=== PATIENT | male | born 1945 | race Caucasian/White ===

== ENCOUNTER 2024-05-04 06:27 | Observation (INO) | payer MEDICARE, OTHER ==
[2024-04-30 13:00] LABS: BASOPHILS # (AUTO) 0.02 K/uL (0.00-0.20); BASOPHILS % (AUTO) 0.2 % (0.0-5.0); EOSINOPHILS # (AUTO) 0.35 K/uL (0.00-0.70); EOSINOPHILS % (AUTO) 3.5 % (0.0-8.0); HEMATOCRIT 47.8 % (42-54); IMMATURE GRANULOCYTE ABSOLUTE 0.03 K/uL (0-1); LYMPHOCYTES # (AUTO) 2.7 K/uL (1.0-4.8); MEAN CORPUSCULAR HEMOGLOBIN 31.3 pg (27.0-33.0); MEAN CORPUSCULAR HGB CONC 33.1 g/dL (32.0-36.0); MEAN CORPUSCULAR VOLUME 94.7 fL (79-99); MONOCYTES # (AUTO) 0.8 K/uL (0.1-1.0); MONOCYTES % (AUTO) 7.8 % (3.0-13.0); NEUTROPHILS # (AUTO) 6.1 K/uL (1.8-7.7); NEUTROPHILS % (AUTO) 61.2 % (40.0-77.0); PLATELET COUNT (AUTO) 270 K/uL (130-400); RED BLOOD CELL COUNT(AUTO) 5.05 MIL/uL (4.50-6.20); RED CELL DISTRIBUTION WIDTH 13.2 % (11.0-15.5); WHITE BLOOD COUNT (AUTO) 9.9 K/uL (4.8-10.8)
[2024-04-30 13:07] LABS: APPEARANCE,URINE CLEAR (CLEAR); BILIRUBIN,URINE NEGATIVE (NEGATIVE); COLOR,URINE LIGHT-YELLOW (YELLOW); GLUCOSE, URINE (UA) NEGATIVE (NEGATIVE); KETONES,URINE NEGATIVE (NEGATIVE); LEUKOCYTE ESTERASE ,URINE NEGATIVE Leu/uL (NEGATIVE); NITRATE,URINE NEGATIVE (NEGATIVE); OCCULT BLOOD,URINE NEGATIVE (NEGATIVE); PROTEIN,URINE NEGATIVE (NEGATIVE); UROBILINOGEN,URINE 0.2 mg/dL (0.2-1.0)
[2024-04-30 13:35] LABS: ADD UA MICROSCOPIC NO
[2024-04-30 13:48] VITALS: BP 181/91; PULSE 86; RESP 18; TEMP 97.5
--- NOTE | 2024-04-30 13:48 | EKG ---
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
[~2024-05-04] VITALS: Ht 193 cm; Wt 151.0 kg
[2024-05-04] VITALS (28 sets, daily range): BP systolic 121–169; BP diastolic 65–94; PULSE 59–104; RESP 12–20; TEMP 96.8–98; O2SAT 97
[~2024-05-04 06:27] MED LIST: LOSA100T59 PO
[2024-05-04] MEDS: ceFAZolin SODIUM 2 GM VIAL ONE (07:07)
[2024-05-04] MEDS: LACTATED RINGERS 1000ML 1,000 ML IV ONE (07:07)
[2024-05-04] MEDS: ceFAZolin SODIUM 1 GM VIAL ONE (07:07)
[2024-05-04] MEDS ORDERED: proPOFol 10 MG/ML 20ML VIAL IV ONE ×2 (07:14→08:40)
[2024-05-04] MEDS ORDERED: GLYCOPYRROLATE 0.2 MG/ML 5 ML VIAL ONE (07:14)
[2024-05-04] MEDS ORDERED: ondanSETRON 4MG INJ ONE ×2 (07:14→09:29)
[2024-05-04] MEDS ORDERED: NEOSTIGMINE METHYLSULFATE 1MG/ML IV ONE (07:14)
[2024-05-04] MEDS ORDERED: dexaMETHasone SOD PHOSPHATE 10MG/ML 1ML VIAL ONE (07:14)
[2024-05-04] MEDS ORDERED: SUCCINYLCHOLINE CHLORIDE 20 MG/ML 10 ML VIAL ONE (07:14)
[2024-05-04] MEDS ORDERED: LIDOCAINE PF 100MG/5ML (2%) SYRINGE 5ML ONE (07:14)
[2024-05-04] MEDS ORDERED: rocuRONium bROMide 10MG/1ML 5ML VL ONE ×2 (07:15→09:14)
[2024-05-04] MEDS ORDERED: MIDAZOLAM HCL 1 MG/ML 2ML VIAL ONE (07:15)
[2024-05-04] MEDS ORDERED: FENTanyl CITRate PF 50 MCG/1 ML 2ML VIAL ONE ×3 (07:15→10:44)
[2024-05-04] MEDS ORDERED: phenylEPHRINE HCL 10 MG/ML 1ML VIAL IV ONE (07:21)
[2024-05-04] MEDS ORDERED: TRANEXAMIC ACID 1000MG/10ML ONE (07:54)
[2024-05-04] MEDS ORDERED: ROPivacaine 0.5% 5MG/ML 30ML ONE (07:55)
[2024-05-04] MEDS ORDERED: ketOROlac 30MG VIAL (30MG/ML) ONE (07:55)
[2024-05-04] MEDS ORDERED: PoTASSium chloRIDE 20MEQ/100ML 100 ML IV PRN (08:00)
[2024-05-04] MEDS ORDERED: traMADol HCL 50 MG TABLET PO PRN (08:00)
[2024-05-04] MEDS ORDERED: PoTASSium chl 10% ELIXIR 20MEQ 20 MEQ/15 ML UDCUP PO PRN (08:00)
[2024-05-04] MEDS ORDERED: ondanSETRON 4MG INJ IVP PRN (08:00)
[2024-05-04] MEDS ORDERED: CALCIUM CARB 500MG PO PRN (08:00)
[2024-05-04] MEDS ORDERED: PoTASSium chloRIDE 20MEQ ER 20 MEQ ERTAB PO PRN (08:00)
[2024-05-04] MEDS ORDERED: FERROUS FUMARATE 324 MG TABLET PO PRN (08:00)
[2024-05-04] MEDS ORDERED: PROMETHAZINE HCL 25 MG TABLET PO PRN (08:00)
[2024-05-04] MEDS: ROPivacaine 0.5% 5MG/ML 30ML IJ ONE (08:02)
--- NOTE | 2024-05-04 11:06 | OP ---
Operative Note: DATE OF PROCEDURE: 05/04/24 PREOPERATIVE DIAGNOSIS: Left knee osteoarthritis. POSTOPERATIVE DIAGNOSIS: Left knee osteoarthritis. PROCEDURE PERFORMED: Left knee total knee arthroplasty. SURGEON: Talita Morataya MD HAND [employer] MAKER: Emma Steinberg. ANESTHESIA: General with adductor canal block. ANESTHESIA: ANNY Claudio. ESTIMATED BLOOD LOSS: 50cc. COMPLICATIONS: None. DRAINS: None. SPECIMENS REMOVED: resected bone. Not sent to pathology. IMPLANTS: [employer] II BCS size 8 Oxinium femur, size 7 tibial base plate, 35 mm patella, 11 mm polyethylene STATEMENT OF MEDICAL NECESSITY: The patient is a 78-year-old male who suffers from left knee osteoarthritis failing conservative management. After discussion of the risks, benefits, and alternatives with the patient, they voluntarily agreed to undergo the aforementioned procedure. DESCRIPTION OF PROCEDURE: Patient was properly identified in the preoperative holding area. Surgical site marking was verified and surgery consent reviewed. The patient was then taken to the operating room and placed in supine position on the OR table. After induction of general anesthesia, preoperative antibiotics were given, all bony prominences were well-padded, and a well padded tourniquet was applied but not inflated at this time. The left lower extremity was then prepped and draped in usual sterile fashion. Surgical time out was done verifying correct surgery, side, site, and location to be performed. We then began the procedure by exsanguinating the limb using an Esmarch and inflating the tourniquet to 350 mmHg. At this point, we made an anterior midline incision using a 10 blade, coming down sharply the level of the fascia. Skin flaps were elevated medially and laterally. We then obtained a clean 10 blade and performed a standard medial parapatellar arthrotomy. We excised the infrapatellar fat pad. We performed our soft tissue releases off of the tibia. We transected the ACL and removed the anterior portion of the medial & lateral meniscus. We then brought the knee into hyperflexion with the patella everted. We used our entry reamer to enter the femoral canal. We then placed our intramedullary cutting guide for our distal femoral cutting block. We then performed our distal femoral osteotomy ensuring appropriate rotation and removed the bony wafer. We then removed these pins and block and then used jig 2 to size the distal femur with the after mentioned size found. We then placed our 5-in-1 cutting block in 3 degrees of external rotation and took our 5 cuts ensuring to protect the patellar tendon and the collateral ligaments. We then removed the cutting block and our bony fragments using a curved osteotome. We then placed our PCL retractor subluxating the tibia anteriorly. Using an extra medullary tibial cutting guide, we hung the block for our proximal tibial cut taking 2 mm off the more diseased portion. Prior to pinning this block in place, we ensured appropriate varus/valgus alignment and posterior slope similar to the coquille slope of the patient's knee. We then performed our proximal tibial osteotomy and removed the bony wafer using Bovie electrocautery to release any remaining soft tissue attachments. We then used our tibial sizing paddle and checked once more for varus & valgus alignment and found this to be appropriate. At this point, we pinned our tibial paddle in place. We then removed the PCL retractor and subluxated the tibia posteriorly while we placed our femoral trial component. We then finished preparing the notch with the reamer and box chisel. The notch portion of the trial femoral component was then placed. A posterior stabilized polyethylene, size 9 trial was placed. This was immediately increased up to a size 10 due to laxity with varus and valgus stressing. The knee was then taken through range of motion and found to have stable full range of motion. We then placed a bump under the ankle and everted the patella to perform our freehand cut of the undersurface the patella. We then sized our patella and reamed to the lug holes for this. We placed our trial patellar component and begin to take the knee through range of motion. The patella had some lateral tracking, and we performed a lateral release. The patella had a mild lateral tracking so which improved with holding the arthrotomy reduced with a towel clip. At this point we began removing our trial components and punched the tibial keel prior to removing our tibial trial component. Final components were opened and cement was mixed on the back table while we injected local cocktail in the posterior capsule. We then thoroughly irrigated out the bone and dried the bony surfaces. We cemented our tibial component in place ensuring to remove excess cement and placed our trial polyethylene. We then cemented our femoral component in place once again taking time to ensure excess cement was removed leg was brought into full extension to help squeeze the excess cement from around the femoral component. We then brought the knee back in a flexion to remove this portion of the cement at this point we placed the ankle in a bump thoroughly irrigated off the patellar component and cemented our patellar component in standard fashion again removing excess cement. While we waited for the cement to cure, we thoroughly irrigated out the wound with normal saline. Once our cement had cured, we took the knee through a range of motion and found full and stable range of motion. We then elected to use the size 11 polyethylene and removed our trial polyethylene. We impacted our final polyethylene component in place in standard fashion and took the knee through a range of motion check once more. This was satisfactory so we began to repair the arthrotomy using a #5 Ethibond at the points of most stress and #1 Vicryl in interrupted [id number] fashion. Subcutaneous tissue was repaired using 2-0 Vicryl. Running subcuticular 3-0 Monocryl stitch with Dermabond placed over this for the skin. We then applied a foam barrier dressing and a pressure dressing consisting of 4 x 4's fluffs and an Kevin wrap. The tourniquet was then deflated. Patient was awakened from anesthesia, and they were taken to the recovery room in stable condition. TALITA MORATAYA MD May 04, 2024 11:06
--- NOTE | 2024-05-04 11:49 | HMCIMG ---
KNEE/PATELLA 1-2VWS LT REASON: S/P LEFT TKA SURGERY TECHNIQUE: 2 views were obtained. FINDINGS: There is a total knee joint prosthesis in place. Adjacent bones appear intact, no evidence of fracture. There are surgical changes in the soft tissues. IMPRESSION: 1. Documentation of left to pleural knee arthroplasty procedure.
[2024-05-04] MEDS: ketOROlac 15MG/ML VIAL (15MG/ML) IV SCH (11:53)
[2024-05-04] MEDS: 0.9%NACL 1000ML 1,000 ML IV SCH (11:53)
[2024-05-04] MEDS: hydroMORPHone 1 MG INJ ONE ×2 (11:55→12:15)
[2024-05-04] MEDS: 0.9%NACL 1000ML 1,000 ML IV ONE (12:41)
[2024-05-04] MEDS: ketOROlac 15MG/ML VIAL (15MG/ML) ONE (12:41)
[2024-05-04] MEDS: morPHINE 4 MG SYG ONE (12:42)
[2024-05-04] MEDS: CYCLOBENZAPRINE HCL 10 MG TABLET PO PRN (12:47)
[2024-05-04] MEDS: GABApentin 100 MG CAPSULE PO SCH (12:47)
[2024-05-04] MEDS: ondanSETRON 4MG INJ ONE (13:05)
[2024-05-04] MEDS: doCUSate SODIUM 100 MG CAP PO SCH (14:55)
[2024-05-04] MEDS: ASPIRIN 325MG TAB PO SCH (14:55)
[2024-05-04] MEDS: LoSARTan 100 MG TABLET PO SCH (14:55)
[2024-05-04] MEDS: polyETHYLene GLYCol 3350 17 GM POWD.PACK PO SCH (14:56)
[2024-05-04] MEDS: ceFAZolin SODIUM 2 GM VIAL IVP SCH (15:05)
--- NOTE | 2024-05-04 17:36 | NUR ---
[facility] CM MET WITH PT ASSESSMENT DONE. PATIENT IS INDEPENDENT PRIOR TO SURGERY, LIVES AT HOME WITH HIS . DENIES ANY EQUIPMENT/SERVICES. FEELS SAFE TO GO BACK HOME, STILL DRIVE, ABLE TO ASSIST WITH TRANSPORTATION AND NEEDS NECESSARY. [facility]. DISCUSSED MD RECOMMENDATIONS FOR IRU AT [facility], PT AGREEABLE, CONSENT SIGNED KAT FOR [facility]. NDP IRU ONCE APPROVED. CM SENT ORDER, CLINICALS TO [facility] VIA SECURE EMAIL. PT CURRENTLY PENDING PT EVAL AT THIS TIME WILL SEND NOTES ONCE AVAILABLE. WI ALSO GIVEN A HEADS UP VIA SECURE EMAIL. PENDING REP RESPONSE. PT PENDING APPROVAL AND ACCEPTANCE. PRIMARY NURSE RICO ANTHONY. DR OREILLY UPDATED. CM TO CONTINUE TO FOLLOW UP. Addendum: 05/04/24 at 1742 by CATHERINE ANDRE LVN Amended: Links added.
--- NOTE | 2024-05-04 18:30 | NUR ---
PATIENT UNABLE TO VOID S/P TREJO REMOVAL. IN AND OUT CATHETER INSERTED, REMOVED 550ML. INSTRUCTIONS GIVEN TO PATIENT ON PENDING TO VOID AGAIN. PATIENT VERBALIZED UNDERSTANDING.
[2024-05-04] MEDS: HYDROcodone/APAP 5/325 1 TAB TABLET PO PRN (20:02)
[2024-05-05] VITALS: BP 123/71; PULSE 90; RESP 18; TEMP 98.2
[2024-05-05 04:00] VITALS: BP 117/67; PULSE 78; RESP 18; TEMP 98.1
[2024-05-05 05:57] LABS: HEMATOCRIT 35.1 % (42-54); MEAN CORPUSCULAR HEMOGLOBIN 31.5 pg (27.0-33.0); MEAN CORPUSCULAR HGB CONC 33.3 g/dL (32.0-36.0); MEAN CORPUSCULAR VOLUME 94.4 fL (79-99); RED BLOOD CELL COUNT(AUTO) 3.72 MIL/uL (4.50-6.20); WHITE BLOOD COUNT (AUTO) 10.6 K/uL (4.8-10.8)
[2024-05-05 06:15] LABS: CREATININE 0.9 mg/dL (0.5-1.3); POTASSIUM 4.2 mmol/L (3.5-5.1)
[2024-05-05 08:00] VITALS: BP 118/58; PULSE 78; RESP 20; TEMP 97.9; O2SAT 94
--- NOTE | 2024-05-05 08:00 | PN ---
Ortho postop day one. This morning patient is awake alert and oriented. He is out of bed seated in chair resting comfortably. Vital signs have been stable. He is afebrile. Laboratory results reviewed. This morning patient is voiding on his own however he was catheterization yesterday. Operative findings discussed with the patient. Kevin bandage has already been removed from the operative extremity and the dressing is intact. While seated in a chair he is extending to about-10 and flexing to 90. Gastrocnemius soft nontender. Negative Homans. Ambulated with therapy 40 ft in the morning and 50 ft in the afternoon. Pending further physical therapy this morning. Anticipated discharge goal for patient is [facility]. Assessment: Status post left total knee arthroplasty. Asymptomatic acute postoperative blood loss anemia. Plan: Continue with Dr. Morataya's TKA protocol and discharge planning. Asymptomatic acute postoperative blood loss anemia addressed with protocol as necessary Vitals/Labs Vital Signs Date Time Temp Pulse Resp B/P (MAP) Pulse Ox O2 Delivery O2 Flow Rate FiO2 05/05/24 04:00 98.1 78 18 117/67 94 Room Air 05/04/24 20:00 0 21 Laboratory Tests 05/05/24 05:20 Medications Current Medications Cefazolin Sodium 1 gm STK-MED ONCE .ROUTE; Start 05/04/24 at 06:34; Stop 05/04/24 at 06:34; Status DC Cefazolin Sodium 2 gm STK-MED ONCE .ROUTE; Start 05/04/24 at 06:34; Stop 05/04/24 at 06:34; Status DC Lactated Ringer's 1,000 ml @ As Directed STK-MED ONCE IV Last administered on 05/04/24at 07:07; Start 05/04/24 at 06:34; Stop 05/04/24 at 06:34; Status DC Lidocaine HCl 100 mg STK-MED ONCE .ROUTE; Start 05/04/24 at 07:14; Stop 05/04/24 at 07:14; Status DC Ondansetron HCl 4 mg STK-MED ONCE .ROUTE; Start 05/04/24 at 07:14; Stop 05/04/24 at 07:14; Status DC Succinylcholine Chloride 200 mg STK-MED ONCE .ROUTE; Start 05/04/24 at 07:14; Stop 05/04/24 at 07:15; Status DC Dexamethasone Sodium Phosphate 10 mg STK-MED ONCE .ROUTE; Start 05/04/24 at 07:14; Stop 05/04/24 at 07:15; Status DC Glycopyrrolate 1 mg STK-MED ONCE .ROUTE; Start 05/04/24 at 07:14; Stop 05/04/24 at 07:15; Status DC Propofol 200 mg STK-MED ONCE IV; Start 05/04/24 at 07:14; Stop 05/04/24 at 07:15; Status DC Neostigmine Methylsulfate 10 mg STK-MED ONCE IV; Start 05/04/24 at 07:14; Stop 05/04/24 at 07:15; Status DC Rocuronium [place] 50 mg STK-MED ONCE .ROUTE; Start 05/04/24 at 07:15; Stop 05/04/24 at 07:15; Status DC Fentanyl Citrate 100 mcg STK-MED ONCE .ROUTE; Start 05/04/24 at 07:15; Stop 05/04/24 at 07:15; Status DC Midazolam HCl 2 mg STK-MED ONCE .ROUTE; Start 05/04/24 at 07:15; Stop 05/04/24 at 07:16; Status DC Phenylephrine HCl 10 mg STK-MED ONCE IV; Start 05/04/24 at 07:21; Stop 05/04/24 at 07:21; Status DC Sodium Chloride 1,000 ml @ 100 mls/hr Q10H IV Last administered on 05/04/24at 14:58; Start 05/04/24 at 08:00; Stop 05/05/24 at 07:59 Polyethylene Glycol 17 gm DAILY PO; Start 05/04/24 at 09:00; Stop 06/03/24 at 08:59 Bisacodyl 10 mg DAILY PRN RC; Start 05/07/24 at 08:00; Stop 06/06/24 at 07:59 Aspirin 325 mg BID PO Last administered on 05/04/24at 20:01; Start 05/04/24 at 09:00; Stop 06/03/24 at 08:59 Ketorolac Tromethamine 15 mg Q6H PRN IV; Start 05/05/24 at 08:00; Stop 05/10/24 at 07:59 Ferrous Fumarate 324 mg DAILY PRN PO; Start 05/04/24 at 08:00; Stop 06/03/24 at 07:59 Ondansetron HCl 4 mg Q6H PRN IVP; Start 05/04/24 at 08:00; Stop 06/03/24 at 07:59 Calcium Carbonate 500 mg Q12H PRN PO; Start 05/04/24 at 08:00; Stop 06/03/24 at 07:59 Cefazolin Sodium 2 gm Q8H IVP Last administered on 05/04/24at 20:02; Start 05/04/24 at 13:00; Stop 05/04/24 at 21:01; Status DC Cyclobenzaprine HCl 5 mg Q8H PRN PO Last administered on 05/04/24at 12:47; Start 05/04/24 at 08:00; Stop 06/03/24 at 07:59 Gabapentin 100 mg TID PO Last administered on 05/04/24at 20:01; Start 05/04/24 at 09:00; Stop 06/03/24 at 08:59 Ketorolac Tromethamine 15 mg Q8H IV Last administered on 05/04/24at 23:12; Start 05/04/24 at 08:00; Stop 05/05/24 at 00:01; Status DC Docusate Sodium 100 mg BID PO Last administered on 05/04/24at 20:01; Start 05/04/24 at 09:00; Stop 06/03/24 at 08:59 Potassium Chloride 100 ml @ 100 mls/hr AD PRN IV; Start 05/04/24 at 08:00; Stop 06/03/24 at 07:59 Potassium Chloride 20 meq AD PRN PO; Start 05/04/24 at 08:00; Stop 06/03/24 at 07:59 Potassium Chloride 20 meq AD PRN PO; Start 05/04/24 at 08:00; Stop 06/03/24 at 07:59 Tramadol HCl 50 mg Q6H PRN PO; Start 05/04/24 at 08:00; Stop 05/09/24 at 07:59 Acetaminophen/ Hydrocodone Bitart Q4H PRN PO Last administered on 05/05/24at 04:45; Start 05/04/24 at 08:00; Stop 05/09/24 at 07:59 Losartan Potassium 100 mg AM PO; Start 05/04/24 at 09:00; Stop 06/03/24 at 08:59 Promethazine HCl 12.5 mg Q6H PRN PO; Start 05/04/24 at 08:00; Stop 06/03/24 at 07:59 Tranexamic Acid 1,000 mg STK-MED ONCE .ROUTE; Start 05/04/24 at 07:54; Stop 05/04/24 at 07:55; Status DC Ketorolac Tromethamine 30 mg STK-MED ONCE .ROUTE; Start 05/04/24 at 07:55; Stop 05/04/24 at 07:55; Status DC Ropivacaine 150 mg STK-MED ONCE .ROUTE; Start 05/04/24 at 07:55; Stop 05/04/24 at 07:55; Status DC Ropivacaine 150 mg STK-MED ONCE IJ Last administered on 05/04/24at 08:02; Start 05/04/24 at 08:02; Stop 05/04/24 at 08:05; Status DC Ketorolac Tromethamine 30 mg STK-MED ONCE IVP Last administered on 05/04/24at 08:03; Start 05/04/24 at 08:03; Stop 05/04/24 at 08:05; Status DC Propofol 200 mg STK-MED ONCE IV; Start 05/04/24 at 08:40; Stop 05/04/24 at 08:40; Status DC Rocuronium [place] 50 mg STK-MED ONCE .ROUTE; Start 05/04/24 at 09:14; Stop 05/04/24 at 09:14; Status DC Fentanyl Citrate 100 mcg STK-MED ONCE .ROUTE; Start 05/04/24 at 09:28; Stop 05/04/24 at 09:29; Status DC Ondansetron HCl 4 mg STK-MED ONCE .ROUTE; Start 05/04/24 at 09:29; Stop 05/04/24 at 09:30; Status DC Fentanyl Citrate 100 mcg STK-MED ONCE .ROUTE; Start 05/04/24 at 10:44; Stop 05/04/24 at 10:44; Status DC Morphine Sulfate 4 mg STK-MED ONCE .ROUTE; Start 05/04/24 at 11:37; Stop 05/04/24 at 11:37; Status DC Hydromorphone HCl 1 mg STK-MED ONCE .ROUTE Last administered on 05/04/24at 11:55; Start 05/04/24 at 11:42; Stop 05/04/24 at 11:42; Status DC Ketorolac Tromethamine 15 mg STK-MED ONCE .ROUTE; Start 05/04/24 at 11:52; Stop 05/04/24 at 11:52; Status DC Sodium Chloride 1,000 ml @ As Directed STK-MED ONCE IV; Start 05/04/24 at 11:52; Stop 05/04/24 at 11:52; Status DC Hydromorphone HCl 1 mg STK-MED ONCE .ROUTE Last administered on 05/04/24at 12:15; Start 05/04/24 at 12:04; Stop 05/04/24 at 12:04; Status DC Ondansetron HCl 4 mg STK-MED ONCE .ROUTE Last administered on 05/04/24at 13:05; Start 05/04/24 at 13:03; Stop 05/04/24 at 13:04; Status DC SHARLENE CHOI NP May 05, 2024 08:00
[2024-05-05] MEDS: ketOROlac 15MG/ML VIAL (15MG/ML) IV PRN (08:32)
[2024-05-05 11:56] VITALS: BP 128/65; PULSE 69; RESP 15; TEMP 98.5
--- NOTE | 2024-05-05 14:00 | NUR ---
ORTHO COORDINATOR: TEACHING REGARDING DVT AND PNEUMONIA PREVENTION, PAIN EXPECTATIONS AND PAIN MANAGEMENT. PATIENT IN BED, JUST COMPLETED PHYSICAL THERAPY. AT BEDSIDE. INCENTIVE SPIROMETER ON BEDSIDE TABLE. PATIENT REPORTS UTILIZING THIS MORNING. REINFORCED IS TO BE USED EVERY 2 HOURS, 10 BREATHS. ENCOURAGED PATIENT TO UTILIZE DURING COMMERCIALS WHILE WATCHING TV. PATIENT AND VERBALIZED UNDERSTANDING. PATIENT RETURN DEMONSTRATED PROPER FOOT EXTENSION AND FLEXION EXERCISES. PAIN CONTROLLED. REVIEWED NUMERIC PAIN SCALE. ENCOURAGED PATIENT TO REPORT NUMERIC VALUE AND TYPE OF PAIN. PATIENT AND VERBALIZED UNDERSTANDING. ENCOURAGED PATIENT TO PREMEDICATE PRIOR TO PHYSICAL THERAPY AND PERIODS OF HIGH ACTIVITY WHILE IN REHAB AND CONTINUE ONCE RELEASED. PATIENT VERBALIZED UNDERSTANDING. PATIENT DOES NOT HAVE WALKER OR 3-1 COMMODE, REASSURED HIM REHAB FACILITY WOULD ASSIST WITH PROCUREMENT. NO ADDITIONAL QUESTIONS/CONCERNS AT THIS TIME.
--- NOTE | 2024-05-05 14:04 | NUR ---
TIFFANIE NOTE: [facility] APPROVAL CM SPOKE TO [facility] [place]/[facility], PT HAS APPROVAL. PENDING REP TO GIVE MOT INFO ONCE MD WRITE DC ORDER. EMS ARRANGED AND FAXED FOR TODAY. PRIMARY NURSE RICO MADE AWARE. DR OERILLY UPDATED, PENDING TO WRITE DC ORDER AND SIGN MED REC & MOT. CM TO CONTINUE TO FOLLOW UP. Addendum: 05/05/24 at 1407 by CATHERINE ANDRE LVN CM Amended: Links added.
--- NOTE | 2024-05-05 14:12 | NUR ---
CM NOTE: [facility] MOT FILLED OUT, PENDING HOUSE SUPER AND MD TO SIGN. CM TO CONTINUE TO FOLLOW UP
[2024-05-05 16:00] VITALS: BP 135/70; PULSE 82; RESP 15; TEMP 98.9
--- NOTE | 2024-05-05 16:45 | NUR ---
REPORT CALLED GIVEN TO RAFAL LEYVA AT [facility]. ALL QUESTIONS AND CONCERNS ANSWERED. IV REMOVED INTACT. EMS CALLED FOR TRANSPORTATION.
[2024-05-07] MEDS ORDERED: BisaCODYL 10 MG SUPP.RECT RC PRN (08:00)
== END 2024-05-05 17:30 ==
LOC: DAH 06:27 → DAHIP 06:28 → 4CH 13:00
PROVIDERS: ADMIT Student in an Organized Health Care Education/Training Program; ATTEND Student in an Organized Health Care Education/Training Program
DX: M17.12 Unilateral primary osteoarthritis, left knee (principal); G89.18 Other acute postprocedural pain; D62 Acute posthemorrhagic anemia; I10 Essential (primary) hypertension; E66.9 Obesity, unspecified; Z68.41 Body mass index [BMI] 40.0-44.9, adult; Z79.899 Other long term (current) drug therapy
CPT/HCPCS: 85025; 87086; 84134; 86140; 81003; 36415 ×2; 93005; 87641; 64447; 27447; 96374; 96376 ×2; 96375; 73560; 97161; 97116 ×4; 97530 ×6; 80048; 85027; G0378 ×27; A4663; J7120; J3010 ×3; J0690 ×4; J1171 ×2; J3490 ×4; J1100; J0330; J7030; J2003; J2250; J2704 ×2; J2405 ×3; J1885 ×6; J2710; J2795 ×2; J2371; C1713 ×2; C1776 ×2; A4649 ×2; A4930; A6255; A6254; A5120; A4215; A4223 ×2; A4222; A4221; A4216; G0379; J2270